=== PATIENT | male | born 1950 | race Caucasian/White ===

== ENCOUNTER 2020-12-17 14:58 | Outpatient (RCR) | payer MEDICARE, SELFPAY ==
[2020-12-17] MEDS: COVID-19 VACC, MRNA(PFIZER)/PF 30 MCG/0.3 ML SYRINGE IM (08:29)
[2021-01-07] MEDS: COVID-19 VACC, MRNA(PFIZER)/PF 30 MCG/0.3 ML SYRINGE IM (07:58)
== END 2020-12-17 23:59 ==
LOC: IMMUN 14:58
PROVIDERS: PCP Family Medicine; Visit Provider Family Medicine
DX: Z23 Encounter for immunization (principal)
CPT/HCPCS: 0001A; 0002A

== ENCOUNTER 2021-01-30 20:28 | Inpatient (IN) | payer MEDICARE, BC, SELFPAY ==
[2021-01-30 20:29] VITALS: BP 124/81; PULSE 105; RESP 16; TEMP 36.1; O2SAT 96; BMI 26.6
--- NOTE | 2021-01-30 20:58 | CT_ITS ---
We are attempting to reach an attending provider to discuss findings. An addendum with communication details will be sent when the communication is complete. HISTORY: abdominal pain TECHNIQUE: Helically acquired images were obtained of the abdomen and pelvis following the intravenous administration of 100mL Isovue-370 Iodinated contrast. 2D reformats. No oral contrast was administered. A radiation dose optimization technique was used for this scan. COMPARISON: None FINDINGS: # of images incl. paperwork: [id number] LUNG BASES: Dependent atelectasis. Left lower lobe benign calcified granuloma. Tiny bilateral Bochdalek hernias Severe coronary artery calcific ASCVD. Tiny pericardial effusion.. CT abdomen: Degenerative disc disease. Facet arthropathy. Enthesopathy. Some hip arthritis. The gallbladder contains several gallstones. Liver, spleen, pancreas, and adrenal glands, are normal. The kidneys are normal. The aorta is disease with atherosclerosis. Below the level of the renal arteries there are 2 times at the infrarenal abdominal aorta is aneurysmally dilated. The more cranial of these 2 episodes is dilated to 2.7 cm. The more inferior time, just above the aortic bifurcation, and the infrarenal abdominal aortic diameter is 3 x 3.4 cm consistent with an infrarenal abdominal aortic aneurysm.. CT pelvis: No ascites is present. The appendix is normal. Series 2 image 82. The prostate gland is not enlarged. A small left inguinal hernia contains only fat. The bladder is normal. Diverticulosis within the decompressed colon. Distended loops of small bowel with many air-fluid levels. Decompressed distal small bowel loops. The transition point is perhaps best demonstrated on the coronal series, coronal series 601 image 40 within the midline just above the urinary bladder. There is a periumbilical anterior abdominal wall hernia that contains only a small amount of fat and does not appear to be involved with a small bowel obstruction. CT/Abdomen/Pelvis W IV Cont ONLY IMPRESSION: Distal small bowel obstruction possibly due to an internal hernia. 3 x 3.4 cm infrarenal abdominal aortic aneurysm with atherosclerosis within the abdominal aorta. Tiny periumbilical hernia. Tiny left inguinal hernia. Cholelithiasis. Individualized dose optimization techniques were used for this CT. at 2315 Reported and signed by: Kal John MD Electronically Signed: Kal John MD at 23:14 EDT Tel , Service support ,
--- NOTE | 2021-01-30 21:00 | ED.DCSUM_ITS ---
History of Present Illness Chief Complaint: Abd Pain Narrative: Patient presents with epigastric and left-sided abdominal pain for 2 days he was seen at an urgent care and was told he has a GI bug, his pain did not improve. He has no diarrhea. He has no urinary symptoms. He has no radiation of the pain pain to his back he has no flank pain he has no tearing sensation. He has no chest pain or shortness of breath. Pain is aching and constant he has some nausea but no vomiting. Past medical history: BPH Medications: Reviewed Social history: Noncontributory Review of systems: All systems negative except as indicated General: No fever Eyes: No visual changes ENT: No upper airway congestion, normal voice Neck: No neck pain Cardiovascular: No chest pain Respiratory: No shortness of breath or cough Gastrointestinal: Epigastric pain and left upper quadrant pain as in HPI Genitourinary: No dysuria Musculoskeletal: Denies myalgias no difficulty with ambulation Skin: No rash Neurological: No memory loss, confusion or any focal weakness Psych: No recent behavioral changes Hematologic: No easy bleeding or easy bruising Physical exam General: Well nourished, Well developed, No Acute Distress Head: Normocephalic, Atraumatic Eyes: Conjunctiva not pale ENT: Moist mucous membranes Neck: Supple, Nontender, No lymphadenopathy Cardiovascular: Regular rate, Regular rhythm Respiratory: No distress, CTA bilaterally Abdomen: Soft, there is epigastric pain without any guarding or rebound there is some left upper quadrant pain. No lower abdominal pain. Back: Nontender, Normal Inspection. Negative for: CVA tenderness Extremities: Nontender, No edema Skin: Normal color, No rash Neurological: Alert, Normal Strength, Normal Sensation Psychological: Normal affect Past Medical History - Allergies and Home Meds Allergies/Adverse Reactions: Allergies No Known Allergies Allergy (Verified 01/30/21 20:31) Primary Care Physician: Abdoul Valdez MD [Primary Care Provider] - Smoking Status: Former smoker Physical Exam Vital Signs/Narrative: Vital Signs Temp Pulse Resp BP Pulse Ox 01/30/21 20:29 97 F L 105 H 16 124/81 H 96 Diagnostic/Tx/Re-eval - Medical Decision Making Patient will be giving analgesia, I will draw blood work to check for pancreati tis I will do a CT. Patient will be turned over to the oncoming ED physician. ED Disposition - Plan for ED Patient: Diagnosis: Abdominal pain Referrals: Abdoul Valdez MD [Primary Care Provider] -
[2021-01-30 21:14] LABS: Bacteria 0 SEEN /hpf (None Seen); Red Blood Cells-Urine 0 SEEN /hpf (0-5); White Blood Cells 0 SEEN /hpf (0-5)
[2021-01-30 21:16] LABS: Absolute Lymphocyte Count 0.63 X10^3/uL (0.83-4.51); Absolute Neutrophil Count 4.1 X10^3/uL (2.0-7.7); Basophil# 0.02 X10^3/uL; Basophil% 0.3 % (0-1); Eosinophil# 0.02 X10^3/uL; Eosinophils% 0.3 % (0-5); Hematocrit 47.6 % (40-54); Hemoglobin 15.6 g/dL (13.0-16.5); Lymphocyte # 0.63 X10^3/ul (0.83-4.51); Lymphocyte % 10.4 % (19-41); Mean Corp Hgb Conc 32.8 g/dL (32-36); Mean Corpuscular Hgb 27.4 pg (27.0-32.0); Mean Corpuscular Volume 83.5 fL (80-94); Mean Platelet Vol. 8.8 fl (6.2-12.0); Monocyte# 1.29 X10^3/uL; Monocyte% 21.4 % (0-10); NRBC Flagged by Analyzer 0 % (0-5); Neutrophil # 4.05 X10^3/uL (2.7-7.7); Neutrophil % 67.1 % (47-70); Platelet Count 160 K/mm3 (150-450); RBC Distribution Width CV 13.1 % (11.6-14.6); RBC Distribution Width SD 39.8 fl (35.1-43.9)
[2021-01-30 21:17] LABS: Color, Urine Yellow (Yellow); Glucose, Dipstick Normal (Normal); Ketone-Dipstick Negative (Negative); Leukocyte Esterase-Dipstick Negative /ul (Negative); Nitrite-Dipstick Negative (Negative); Occult Blood-Urine Negative /ul (Negative); Protein-Dipstick 15 mg/dl (Negative); Urine Bilirubin Dipstick Negative (Negative); Urine Clarity Clear (Clear); Urine Urobilinogen Normal (Normal)
[2021-01-30 21:25] LABS: Mucous, Urine 1+ /hpf (<or=2+); Squamous Epithelial Cells - UA 0-5 SEEN /hpf (0-5)
[2021-01-30] MEDS: 0.9% Normal Saline 1,000 ML 1000 ML IV (21:26)
[2021-01-30] MEDS: Ondansetron 4 MG/2 ML Vial IV ×2 (21:27→23:46)
[2021-01-30] MEDS: Morphine 2 MG/ML Syringe IV (21:27)
[2021-01-30 21:32] LABS: AST(SGOT) 12 U/L (15-37); Alanine Aminotransfer ALT/SGPT 20 U/L (16-61); Albumin, Serum 3.6 g/dL (3.2-5.0); Alkaline Phosphatase 79 U/L (45-117); Anion Gap 5 (5-15); BUN 13 mg/dL (7-18); BUN/Creat Ratio 10.2 RATIO (10-20); Calcium,Total 8.9 mg/dL (8.5-10.1); Chloride 103 mmol/L (98-107); Creatinine, Serum 1.28 mg/dL (0.70-1.30); EST Glomerular Filtration Rate 59 mL/min (>60); Est Glom Filt Rate - Afr Amer 71 mL/min (>60); Estimated Creatinine Clearance 52.93 ml/min; Globulin 3.6 g/dL (2.2-4.2); Glucose 121 mg/dL (74-106); Lipase 69 U/L (73-393); Potassium 4.1 mmol/L (3.5-5.1); Protein, Total 7.2 g/dL (6.4-8.2); Sodium Level 136 mmol/L (136-145)
--- NOTE | 2021-01-30 21:47 | ED.DEP ---
ED Disposition - Plan for ED Patient: Diagnosis: Abdominal pain Instructions: ED Pain, Acute, Uncertain Cause Prescriptions: Omeprazole 40 mg PO DAILY #30 capsule.dr Transmission Status: Pending to [facility] Referrals: Abdoul Valdez MD [Primary Care Provider] - 2 Days
[2021-01-30 22:21] VITALS: BP 140/80; PULSE 76; RESP 16; TEMP 36.9; O2SAT 97
[2021-01-30] MEDS: Morphine 4 MG/ML Syringe IV (22:56)
[2021-01-30 22:57] VITALS: BP 136/84; PULSE 82; RESP 19; O2SAT 96
[2021-01-30 23:13] VITALS: BP 138/78; PULSE 74; RESP 18; TEMP 36.7; O2SAT 92
[2021-01-30 23:48] VITALS: BP 136/83; PULSE 88; RESP 17; TEMP 37.1; O2SAT 98
[2021-01-30 23:50] VITALS: BP 136/83; PULSE 84; PULSE 88; RESP 16; TEMP 36.9; O2SAT 97; O2SAT 98
[2021-01-31 00:46] VITALS: BP 132/77; PULSE 89; RESP 17; TEMP 36.9; O2SAT 93
[2021-01-31 02:14] VITALS: BP 134/77; BP 136/90; PULSE 84; RESP 16; RESP 17; TEMP 37.1; O2SAT 94; O2SAT 96
[2021-01-31 03:17] VITALS: BMI 25.4; BMI 25.5
[2021-01-31 03:51] VITALS: BP 124/64; PULSE 80; RESP 16; TEMP 37.4; O2SAT 95
[2021-01-31] MEDS: 0.9% Normal Saline 1,000 ML 75 ML IV ×3 (04:40→20:39)
[2021-01-31 06:38] LABS: Hematocrit 42.8 % (40-54); Hemoglobin 14.2 g/dL (13.0-16.5); Mean Corp Hgb Conc 33.2 g/dL (32-36); Mean Corpuscular Hgb 28.1 pg (27.0-32.0); Mean Corpuscular Volume 84.8 fL (80-94); Mean Platelet Vol. 8.6 fl (6.2-12.0); Platelet Count 155 K/mm3 (150-450); RBC Distribution Width CV 13.1 % (11.6-14.6); RBC Distribution Width SD 40.3 fl (35.1-43.9); Red Blood Count 5.05 M/mm3 (4.6-6.2); White Blood Count 5.3 K/mm3 (4.4-11.0)
[2021-01-31 06:49] LABS: Anion Gap 5 (5-15); BUN 13 mg/dL (7-18); BUN/Creat Ratio 12.9 RATIO (10-20); Calcium,Total 8.1 mg/dL (8.5-10.1); Chloride 105 mmol/L (98-107); Creatinine, Serum 1.01 mg/dL (0.70-1.30); EST Glomerular Filtration Rate 77 mL/min (>60); Est Glom Filt Rate - Afr Amer 94 mL/min (>60); Estimated Creatinine Clearance 67.08 ml/min; Glucose 104 mg/dL (74-106); Potassium 3.9 mmol/L (3.5-5.1); Sodium Level 136 mmol/L (136-145)
[2021-01-31 07:42] VITALS: BP 111/65; PULSE 81; RESP 14; TEMP 36.9; O2SAT 94
--- NOTE | 2021-01-31 10:11 | PCM.HP.STD ---
Problem List (1) Abdominal pain Status: Acute Qualifiers: Abdominal location: left upper quadrant Qualified Code(s): R10.12 - Left upper quadrant pain History of Present Illness Date of Admission: 01/31/21 The patient is a 70 year old M Patient presents with epigastric and left-sided abdominal pain for 2 days he was seen at an urgent care and was told he has a GI bug, his pain did not improve. He has no diarrhea. He has no urinary symptoms. He has no radiation of the pain pain to his back he has no flank pain he has no tearing sensation. He has no chest pain or shortness of breath. Pain is aching and constant he has some nausea but no vomiting. The patient has had 2 CT scans 1 with IV contrast only on the other with oral contrast only. Findings: IMPRESSION: Cholelithiasis. Small bowel wall thickening within the mid jejunum with mesenteric fat stranding may represent small bowel ischemia. There is an infrarenal abdominal aortic aneurysm measures 3.1 cm in greatest diameter. IMPRESSION: Distal small bowel obstruction possibly due to an internal hernia. 3 x 3.4 cm infrarenal abdominal aortic aneurysm with atherosclerosis within the abdominal aorta. Tiny periumbilical hernia. Tiny left inguinal hernia. Cholelithiasis. Individualized dose optimization techniques were used for this CT. Since being on the floor his pain has improved. He still has his Molina catheter in. He is not having any further nausea. He still experiencing some slight abdominal discomfort. Past Medical History Allergies No Known Allergies Allergy (Verified 01/30/21 20:31) Home Medications: Ambulatory Orders Medication Instructions Recorded Alfuzosin HCl [Alfuzosin HCl ER] 10 mg PO DAILY 01/30/21 Cyclobenzaprine HCl 1 tablet PO DAILY 01/30/21 Ferrous Sulfate [Iron] 325 mg PO QODAY 01/30/21 Finasteride 1 tablet PO DAILY 01/30/21 Surgical History: no surgical history Smoking Status: Former smoker Tobacco Use: Cigarettes - *Family History Maternal History Items: No pertinent history Review of Systems Constitutional: Denies: Chills, Fever, Weight Change Cardiovascular: Denies: Chest Pain, Chest Pressure, Chest Tightness, Palpitations Respiratory: Denies: Cough, Hemoptysis, Shortness of breath at rest, Shortness of breath upon exertion, Wheezing Gastrointestinal: Reports: Abdominal Pain, Nausea VTE Information - Inpt Only VTE Present on Admission: No VTE Mechan Device Prophylaxis: SCD's VTE Pharm Prophylaxis ordered?: No Reason prophylaxis not ordered:: Treatment Not Indicated Patient Problems: Active and Suspected Problems Abdominal pain (Acute) - Physical Exam Vitals/I&O's: Vital Signs Temp Pulse Resp BP Pulse Ox 98.5 F 81 14 111/65 94 01/31/21 07:42 01/31/21 07:42 01/31/21 07:42 01/31/21 07:42 01/31/21 07:42 Oxygen Flow Rate (L/min) 2 Oxygen Delivery Method Room Air Weight: 172 lb 6.424 oz Body Mass Index (BMI) 25.4 Intake and Output for Last 24 Hours 01/29/21 01/30/21 01/31/21 23:59 23:59 23:59 Intake Total 1000 / 1000 338.75 / 338.75 Output Total 150 / 150 Balance 1000 / 1000 188.75 / 188.75 General: Alert, Oriented x3 Lungs: Clear to auscultation Cardiovascular: Regular rate, Regular Rhythm, No murmurs Abdomen: Soft - No rebound guarding or peritoneal signs are identified. He is slightly distended. Laboratory Results 01/30/21 21:05: Urine Color Yellow, Urine Clarity Clear, Urine pH 6.0, Ur Specific [place] 1.020, Urine Protein 15 H, Urine Glucose (UA) Normal, Urine Ketones Negative, Urine Occult Blood Negative, Urine Nitrite Negative, Urine Bilirubin Negative, Urine Urobilinogen Normal, Ur Leukocyte Esterase Negative, Urine RBC 0 SEEN, Urine WBC 0 SEEN, Ur Squamous Epith Cells 0-5 SEEN, Urine Bacteria 0 SEEN, Urine Mucus 1+ 01/30/21 21:07: WBC 6.0, RBC 5.70, Hgb 15.6, Hct 47.6, MCV 83.5, MCH 27.4, MCHC 32.8, RDW Std Deviation 39.8, RDW Coeff of Douglas 13.1, Plt Count 160, MPV 8.8, Immature Gran % (Auto) 0.500, Neut % (Auto) 67.1, Lymph % (Auto) 10.4 L, [place] % (Auto) 21.4 H, Eos % (Auto) 0.3, Baso % (Auto) 0.3, Absolute Neuts (auto) 4.1, Absolute Lymphs (auto) 0.63 L, Nucleated RBC % 0 01/30/21 21:07: Sodium 136, Potassium 4.1, Chloride 103, Carbon Dioxide 28.0, Anion Gap 5, BUN 13, Creatinine 1.28, Estim Creat Clear Calc 52.93, Est GFR (MDRD) Af Amer 71, Est GFR (MDRD) Non-Af 59 L, BUN/Creatinine Ratio 10.2, Glucose 121 H, Calcium 8.9, Total Bilirubin 0.80, AST 12 L, ALT 20, Alkaline Phosphatase 79, Total Protein 7.2, Albumin 3.6, Globulin 3.6, Albumin/Globulin Ratio 1.0, Lipase 69 L 01/31/21 02:57: Lactic Acid 1.0 01/31/21 06:28: WBC 5.3, RBC 5.05, Hgb 14.2, Hct 42.8, MCV 84.8, MCH 28.1, MCHC 33.2, RDW Std Deviation 40.3, RDW Coeff of Douglas 13.1, Plt Count 155, MPV 8.6 01/31/21 06:28: Sodium 136, Potassium 3.9, Chloride 105, Carbon Dioxide 26.0, Anion Gap 5, BUN 13, Creatinine 1.01, Estim Creat Clear Calc 67.08, Est GFR (MDRD) Af Amer 94, Est GFR (MDRD) Non-Af 77, BUN/Creatinine Ratio 12.9, Glucose 104, Calcium 8.1 L Current Medications Hydromorphone HCl (Hydromorphone 0.5 Mg/0.5 Ml Syringe) 0.5 - 1 mg IV Q3H PRN PRN PRN Reason: PAIN 1-10/10 Hydromorphone HCl (Hydromorphone 1 Mg/Ml Syringe) 0.5 - 1 mg IV Q3H PRN PRN PRN Reason: PAIN 1-10/10 Sodium Chloride () 1,000 mls @ 75 mls/hr IV .[id number] [facility] Last Admin: 01/31/21 09:11 Dose: 75 mls/hr Documented by: Ondansetron HCl (Ondansetron 4 Mg/2 Ml Vial) 4 mg IV Q6H PRN PRN PRN Reason: nausea Sodium Chloride (0.9% Saline Lock 10 Ml Syringe) 10 - 40 ml IV UD PRN PRN Reason: SALINE FLUSH Assessment/Plan All Active Problems Abdominal pain (Acute) I think the best thing to do here is just to continue to hydrate him get him back on his prostate medications to hopefully will be able to get rid of his Molina catheter. Since he is improving anticipate that hopefully this will continue I am not going to start him on any antibiotics I will start him on some clear liquids to see how he does with that. At some point he is going to have to have a GI consultation with a capsule endoscopy to evaluate the small intestine that looked abnormal. At the present time it does not appear that he has anything that I need to operate on emergently.
[2021-01-31] MEDS: Finasteride 5 MG Tablet PO (11:26)
[2021-01-31] MEDS: cycloBENZAPRine HCl 5 MG TABLET PO (11:27)
[2021-01-31 14:00] VITALS: BP 122/70; PULSE 72; RESP 16; TEMP 37; O2SAT 97
[2021-01-31] MEDS: HYDROmorphone 0.5 MG/0.5 ML SYRINGE IV ×2 (15:15→21:28)
[2021-01-31] MEDS: 0.9% Saline Lock 10 ML Syringe IV ×2 (15:16→15:24)
[2021-01-31] MEDS: Ondansetron 4 MG/2 ML Vial IV ×2 (15:25→21:28)
[2021-01-31] MEDS: Tamsulosin HCl 0.4 MG Capsule PO (17:15)
[2021-01-31 20:36] VITALS: BP 139/84; PULSE 72; RESP 16; TEMP 37.1; O2SAT 98
--- NOTE | 2021-01-31 23:34 | CT_ITS ---
STUDY: CT ABDOMEN AND PELVIS WITHOUT CONTRAST REASON FOR EXAM: Male, 70 years old. SBO RADIATION DOSAGE (If Supplied By Facility): CTDIvol = ( 8.49 ) mGy, DLP = ( 437.18 ) mGycm TECHNIQUE: Transaxial images were obtained from the dome of the diaphragm to the symphysis pubis without oral contrast, and without intravenous contrast. Sagittal and coronal images were reconstructed. Individualized dose optimization techniques were used for this CT. COMPARISON: None. FINDINGS: The visualized lung bases are unremarkable. The visualized portions of the heart are within normal limits. Normal liver. There are multiple gallstones. Normal spleen. Normal pancreas. Normal bilateral adrenal glands. Bilateral renal cysts are noted the largest measures 3.0 cm is in the right kidney. Normal visualized stomach. Small bowel wall thickening within the mid jejunum with mesenteric fat stranding may represent small bowel ischemia. Normal colon. The appendix is visualized and appears normal. There is an infrarenal abdominal aortic aneurysm measures 3.1 cm in greatest diameter. Normal inferior vena cava. Normal retroperitoneum. Normal urinary bladder. Normal abdominal wall. Normal osseous structures. CT/Abdomen/Pel W ORAL Cont Only IMPRESSION: Cholelithiasis. Small bowel wall thickening within the mid jejunum with mesenteric fat stranding may represent small bowel ischemia. There is an infrarenal abdominal aortic aneurysm measures 3.1 cm in greatest diameter. Electronically Signed: Crystal Peter MD at 2:44 EDT Tel , Service support ,
[2021-02-01 02:10] VITALS: BP 115/72; PULSE 70; RESP 16; TEMP 36.7; O2SAT 94
--- NOTE | 2021-02-01 07:02 | PCM.PN.SRG ---
Patient Problems: Active and Suspected Problems Abdominal pain (Acute) Subjective: No real change in his abdominal exam today. Still feels occasional discomfort has not had any bowel movements states that he is passing slight amount of flatus. Objective: Abdomen is soft he has no rebound guarding or peritoneal signs identified. - Physical Exam Vitals/I&O's: Vital Signs Temp Pulse Resp BP Pulse Ox 98.1 F 70 16 115/72 94 02/01/21 02:10 02/01/21 02:10 02/01/21 02:10 02/01/21 02:10 02/01/21 02:10 Oxygen Flow Rate (L/min) 2 Oxygen Delivery Method Room Air Weight: 172 lb 6.424 oz Body Mass Index (BMI) 25.4 Intake and Output for Last 24 Hours 01/30/21 01/31/21 02/01/21 23:59 23:59 23:59 Intake Total 1000 / 1000 2398.75 / 2598.75 200 / 200 Output Total 1875 / 2425 1050 / 1050 Balance 1000 / 1000 523.75 / 173.75 -850 / -850 Current Medications Cyclobenzaprine HCl (Cyclobenzaprine Hcl 5 Mg Tablet) 5 mg PO DAILY [facility] Last Admin: 01/31/21 11:27 Dose: 5 mg Documented by: Finasteride (Finasteride 5 Mg Tablet) 5 mg PO DAILY [facility] Last Admin: 01/31/21 11:26 Dose: 5 mg Documented by: Hydromorphone HCl (Hydromorphone 0.5 Mg/0.5 Ml Syringe) 0.5 - 1 mg IV Q3H PRN PRN PRN Reason: PAIN 1-1010 Last Admin: 01/31/21 21:28 Dose: 0.5 mg Documented by: Hydromorphone HCl (Hydromorphone 1 Mg/Ml Syringe) 0.5 - 1 mg IV Q3H PRN PRN PRN Reason: PAIN 1-10/10 Sodium Chloride () 1,000 mls @ 75 mls/hr IV .[id number] [facility] Last Admin: 01/31/21 20:39 Dose: 75 mls/hr Documented by: Ondansetron HCl (Ondansetron 4 Mg/2 Ml Vial) 4 mg IV Q6H PRN PRN PRN Reason: nausea Last Admin: 01/31/21 21:28 Dose: 4 mg Documented by: Sodium Chloride (0.9% Saline Lock 10 Ml Syringe) 10 - 40 ml IV UD PRN PRN Reason: SALINE FLUSH Last Admin: 01/31/21 15:24 Dose: 10 ml Documented by: Tamsulosin HCl (Tamsulosin Hcl 0.4 Mg Capsule) 0.4 mg PO DAILY@1730 YANET Last Admin: 01/31/21 17:15 Dose: 0.4 mg Documented by: Medical Necessity - Tobacco Use Smoking Status: Former smoker Tobacco Use: Cigarettes Assessment/Plan All Active Problems Abdominal pain (Acute) Labs are still pending this morning. Awaiting GI function. Unlikely I will be able to discharge him today.
[2021-02-01 08:00] VITALS: BP 125/78; PULSE 80; RESP 18; TEMP 36.8; O2SAT 98
[2021-02-01 10:03] LABS: Absolute Lymphocyte Count 0.91 X10^3/uL (0.83-4.51); Absolute Neutrophil Count 2.7 X10^3/uL (2.0-7.7); Basophil# 0.03 X10^3/uL; Basophil% 0.6 % (0-1); Eosinophil# 0.17 X10^3/uL; Eosinophils% 3.5 % (0-5); Hematocrit 42.5 % (40-54); Hemoglobin 13.6 g/dL (13.0-16.5); Lymphocyte # 0.91 X10^3/ul (0.83-4.51); Lymphocyte % 18.5 % (19-41); Mean Corpuscular Hgb 27.4 pg (27.0-32.0); Mean Corpuscular Volume 85.5 fL (80-94); Mean Platelet Vol. 8.4 fl (6.2-12.0); Monocyte# 0.92 X10^3/uL; Monocyte% 18.7 % (0-10); NRBC Flagged by Analyzer 0 % (0-5); Neutrophil # 2.68 X10^3/uL (2.7-7.7); Neutrophil % 54.6 % (47-70); Platelet Count 150 K/mm3 (150-450); RBC Distribution Width CV 13.1 % (11.6-14.6); RBC Distribution Width SD 40.6 fl (35.1-43.9); Red Blood Count 4.97 M/mm3 (4.6-6.2); White Blood Count 4.9 K/mm3 (4.4-11.0)
--- NOTE | 2021-02-01 10:10 | CASEMGMT ---
RN ENRIQUE Face to Face with patient for initial transition planning/care coordination assessment. RN CM introduced self and role at [facility]. Patient lying in bed, alert and oriented. Patient willing to participate in assessment and is able to answer all questions appropriately. Care providers, pharmacy, and demographics verified. Patient wishes to discharge home, denies need for home health at this time. Patient states he has no further needs or concerns at this time. CM to follow for discharge planning needs that may arise. PCP: José Miguel Specialists: none Preferred Pharmacy: [facility] Insurance: Gabe ACOSTA Prescription Benefit: yes Living Will/HPOA: yes, Elisabeth Neville LNOK: Living Arrangements: Patient lives with in a single story home with no steps to enter. Patient states he is independent at home. Transportation: self/ DME/HHC: patient denies DME or previous HHC. Disposition Plan: Patient to discharge home with family support and follow-up plans in place. Isaura NIELSEN, RN, CM
[2021-02-01] MEDS: cycloBENZAPRine HCl 5 MG TABLET PO (10:21)
[2021-02-01] MEDS: Finasteride 5 MG Tablet PO (10:21)
[2021-02-01] MEDS: 0.9% Normal Saline 1,000 ML 75 ML IV ×2 (10:22→23:54)
[2021-02-01 10:32] LABS: ALB/GLOB Ratio 0.9 RATIO (0.9-2.4); AST(SGOT) 9 U/L (15-37); Alanine Aminotransfer ALT/SGPT 15 U/L (16-61); Albumin, Serum 2.9 g/dL (3.2-5.0); Alkaline Phosphatase 68 U/L (45-117); Anion Gap 4 (5-15); BUN 11 mg/dL (7-18); Calcium,Total 8.4 mg/dL (8.5-10.1); Chloride 106 mmol/L (98-107); EST Glomerular Filtration Rate 70 mL/min (>60); Est Glom Filt Rate - Afr Amer 85 mL/min (>60); Estimated Creatinine Clearance 61.59 ml/min; Globulin 3.3 g/dL (2.2-4.2); Glucose 110 mg/dL (74-106); Potassium 3.9 mmol/L (3.5-5.1); Protein, Total 6.2 g/dL (6.4-8.2); Sodium Level 138 mmol/L (136-145)
[2021-02-01 14:17] VITALS: BP 119/71; PULSE 67; RESP 18; TEMP 36.5; O2SAT 97
--- NOTE | 2021-02-01 15:20 | NURSING ---
This nurse spoke with FRANCIS Matute, Dr. Valles will see pt as outpatient but request that pt has an outpatient abdominal ultrasound done before appointment.
--- NOTE | 2021-02-01 15:23 | CHAPLAIN ---
Type of Pastoral Visit _x__ Initial Visit ___ Follow-up Visit ___ On-call Visit ___ General Patient Visit ___ Spiritual Assessment ___ Family Conference ___ Bereavement ___ Rapid Response ___ Code Blue ___ Other (describe below) Pastoral Care Referral From _x__ Patient ___ Family ___ Nurse ___ Physician ___ [employer] Spray Unit Adjuster ___ Cloth Printer Helper ___ Other (describe below) Sacrament/Intervention _x__ Active listening ___ Anointing ___ Jehovah'S Witness ___ Bereavement ___ Communion ___ Kim exploration ___ ___ Life review _x__ Prayer ___ Reconciliation ___ Sacrament of Sick ___ Supportive presence ___ Wedding ___ Other (describe below) Pastoral Comments patient and spouse together in room; pt states they keep finding more things that are wrong; spouse more talkative and more welcoming of prayer and presence at this time; pt is fairly quiet and not as willing to talk;
--- NOTE | 2021-02-01 16:01 | PCM.PN.BLA ---
Progress Note Incidental 3.1 cm abdominal aortic aneurysm found on CT scan of the abdomen pelvis. I was contacted by Dr. Deleon this morning for possible vascular outpatient consult. Patient will need formal abdominal ultrasound to further evaluate this patient's AAA. He will need to have a scheduled outpatient consult within 2 weeks of discharge with Dr. Valles for evaluation and treatment planning moving forward. Patient was briefly discussed with Dr. Valles. He is fine to follow as an outpatient. STROKE Vital Signs/Narrative: Vital Signs Temp Pulse Resp BP Pulse Ox 02/01/21 14:17 97.7 F L 67 18 119/71 97
[2021-02-01] MEDS: Tamsulosin HCl 0.4 MG Capsule PO (17:13)
[2021-02-01 20:33] VITALS: BP 110/73; PULSE 64; RESP 16; TEMP 36.7; O2SAT 96
[2021-02-02 02:29] VITALS: BP 118/73; PULSE 66; RESP 18; TEMP 36.9; O2SAT 94
[2021-02-02] MEDS: Tamsulosin HCl 0.4 MG Capsule PO (07:46)
[2021-02-02] MEDS: Finasteride 5 MG Tablet PO (07:46)
[2021-02-02] MEDS: cycloBENZAPRine HCl 5 MG TABLET PO (07:46)
--- NOTE | 2021-02-02 07:47 | PCM.PN.SRG ---
Patient Problems: Active and Suspected Problems Abdominal pain (Acute) Subjective: Patient still complaining of some minimal abdominal pain. No nausea or vomiting had a bowel movement yesterday. Objective: Abdomen is soft no rebound guarding or peritoneal signs are identified. - Physical Exam Vitals/I&O's: Vital Signs Temp Pulse Resp BP Pulse Ox 98.4 F 66 18 118/73 94 02/02/21 02:29 02/02/21 02:29 02/02/21 02:29 02/02/21 02:29 02/02/21 02:29 Oxygen Flow Rate (L/min) 2 Oxygen Delivery Method Room Air Weight: 172 lb 6.424 oz Body Mass Index (BMI) 25.4 Intake and Output for Last 24 Hours 01/31/21 02/01/21 02/02/21 23:59 23:59 23:59 Intake Total 2398.75 / 2598.75 4200 / 4200 Output Total 1875 / 2425 3400 / 4500 1525 / 1525 Balance 523.75 / 173.75 800 / -300 -1525 / -1525 Laboratory Results 02/01/21 09:54: WBC 4.9, RBC 4.97, Hgb 13.6, Hct 42.5, MCV 85.5, MCH 27.4, MCHC 32.0, RDW Std Deviation 40.6, RDW Coeff of Douglas 13.1, Plt Count 150, MPV 8.4, Immature Gran % (Auto) 4.100 H, Neut % (Auto) 54.6, Lymph % (Auto) 18.5 L, [place] % (Auto) 18.7 H, Eos % (Auto) 3.5, Baso % (Auto) 0.6, Absolute Neuts (auto) 2.7, Absolute Lymphs (auto) 0.91, Nucleated RBC % 0 02/01/21 09:54: Sodium 138, Potassium 3.9, Chloride 106, Carbon Dioxide 28.0, Anion Gap 4 L, BUN 11, Creatinine 1.10, Estim Creat Clear Calc 61.59, Est GFR (MDRD) Af Amer 85, Est GFR (MDRD) Non-Af 70, BUN/Creatinine Ratio 10.0, Glucose 110 H, Calcium 8.4 L, Total Bilirubin 0.60, AST 9 L, ALT 15 L, Alkaline Phosphatase 68, Total Protein 6.2 L, Albumin 2.9 L, Globulin 3.3, Albumin/Globulin Ratio 0.9 Current Medications Cyclobenzaprine HCl (Cyclobenzaprine Hcl 5 Mg Tablet) 5 mg PO DAILY [facility] Last Admin: 02/02/21 07:46 Dose: 5 mg Documented by: Finasteride (Finasteride 5 Mg Tablet) 5 mg PO DAILY [facility] Last Admin: 02/02/21 07:46 Dose: 5 mg Documented by: Hydromorphone HCl (Hydromorphone 0.5 Mg/0.5 Ml Syringe) 0.5 - 1 mg IV Q3H PRN PRN PRN Reason: PAIN 1-1010 Last Admin: 01/31/21 21:28 Dose: 0.5 mg Documented by: Hydromorphone HCl (Hydromorphone 1 Mg/Ml Syringe) 0.5 - 1 mg IV Q3H PRN PRN PRN Reason: PAIN 1-10/10 Sodium Chloride () 1,000 mls @ 75 mls/hr IV .[id number] [facility] Last Admin: 02/01/21 23:54 Dose: 75 mls/hr Documented by: Ondansetron HCl (Ondansetron 4 Mg/2 Ml Vial) 4 mg IV Q6H PRN PRN PRN Reason: nausea Last Admin: 01/31/21 21:28 Dose: 4 mg Documented by: Sodium Chloride (0.9% Saline Lock 10 Ml Syringe) 10 - 40 ml IV UD PRN PRN Reason: SALINE FLUSH Last Admin: 01/31/21 15:24 Dose: 10 ml Documented by: Tamsulosin HCl (Tamsulosin Hcl 0.4 Mg Capsule) 0.4 mg PO DAILY@1730 [facility] Last Admin: 02/02/21 07:46 Dose: 0.4 mg Documented by: Medical Necessity - Tobacco Use Smoking Status: Former smoker Tobacco Use: Cigarettes Assessment/Plan All Active Problems Abdominal pain (Acute) Going to get him discharged home today. He has been on his prostate medication so I think it is okay to DC the Molina without difficulty. He will need to have a capsule endoscopy and I am going to have to get him referred to gastroenterology up at the main [place] for this.
--- NOTE | 2021-02-02 07:48 | DCINST_ITS ---
Discharge Diet: Light diet - advance as tolerated - If you have questions about your diet instructions, please talk to your doctor. Discharge Activity: May Drive May shower in (days): 1 Lifting Restrictions: 10 pounds Call your doctor if you observe: Fever of 101 or Higher, Inability to urinate Additional Dressing/Incision Instructions:: Change or remove dressing in 4 days. Leave steri-strips in place for 1 week. Instructions: ED Pain, Acute, Uncertain Cause Allergies/Adverse Reactions: Allergies No Known Allergies Allergy (Verified 01/30/21 20:31) Medications to take at Discharge Alfuzosin HCl [Alfuzosin HCl ER] 10 mg PO DAILY 01/30/21 Cyclobenzaprine HCl 1 tablet PO DAILY 01/30/21 Ferrous Sulfate [Iron] 325 mg PO QODAY 01/30/21 Finasteride 1 tablet PO DAILY 01/30/21 Primary Care Physician: Abdoul Valdez MD [Primary Care Provider] - 2 Days Test Results: Test results from this visit will be discussed in further detail at your follow- up appointment, if applicable. Please Follow Up With: Juju Thompson PA-C - [phone] When: Call to make an appointment to be seen in about 10 days.
--- NOTE | 2021-02-02 07:52 | PCM.DC.SUM ---
Discharge Date and Diagnosis - Problem List Patient Problems: Active and Suspected Problems Abdominal pain (Acute) Date of Admission: 01/31/21 - Primary Discharge Diagnosis Acute Problems: Active Problems Abdominal pain (Acute) Hospital Course and Treatment Operations: None Procedures: None Summary of Care Provided: The patient is a 70 year old M Patient presents with epigastric and left-sided abdominal pain for 2 days he was seen at an urgent care and was told he has a GI bug, his pain did not improve. He has no diarrhea. He has no urinary symptoms. He has no radiation of the pain pain to his back he has no flank pain he has no tearing sensation. He has no chest pain or shortness of breath. Pain is aching and constant he has some nausea but no vomiting. The patient has had 2 CT scans 1 with IV contrast only on the other with oral contrast only. His abdominal pain slightly improved but it never really went away. He eventually did have a bowel movement that was nonbloody in nature. Patient Problems: Active and Suspected Problems Abdominal pain (Acute) - Physical Exam Vitals/I&O's: Vital Signs Temp Pulse Resp BP Pulse Ox 98.4 F 66 18 118/73 94 02/02/21 02:29 02/02/21 02:29 02/02/21 02:29 02/02/21 02:29 02/02/21 02:29 Oxygen Flow Rate (L/min) 2 Oxygen Delivery Method Room Air Weight: 172 lb 6.424 oz Body Mass Index (BMI) 25.4 Intake and Output for Last 24 Hours 01/31/21 02/01/21 02/02/21 23:59 23:59 23:59 Intake Total 2398.75 / 2598.75 4200 / 4200 Output Total 1875 / 2425 3400 / 4500 1525 / 1525 Balance 523.75 / 173.75 800 / -300 -1525 / -1525 Laboratory Results 02/01/21 09:54: WBC 4.9, RBC 4.97, Hgb 13.6, Hct 42.5, MCV 85.5, MCH 27.4, MCHC 32.0, RDW Std Deviation 40.6, RDW Coeff of Douglas 13.1, Plt Count 150, MPV 8.4, Immature Gran % (Auto) 4.100 H, Neut % (Auto) 54.6, Lymph % (Auto) 18.5 L, [place] % (Auto) 18.7 H, Eos % (Auto) 3.5, Baso % (Auto) 0.6, Absolute Neuts (auto) 2.7, Absolute Lymphs (auto) 0.91, Nucleated RBC % 0 02/01/21 09:54: Sodium 138, Potassium 3.9, Chloride 106, Carbon Dioxide 28.0, Anion Gap 4 L, BUN 11, Creatinine 1.10, Estim Creat Clear Calc 61.59, Est GFR (MDRD) Af Amer 85, Est GFR (MDRD) Non-Af 70, BUN/Creatinine Ratio 10.0, Glucose 110 H, Calcium 8.4 L, Total Bilirubin 0.60, AST 9 L, ALT 15 L, Alkaline Phosphatase 68, Total Protein 6.2 L, Albumin 2.9 L, Globulin 3.3, Albumin/Globulin Ratio 0.9 Current Medications Cyclobenzaprine HCl (Cyclobenzaprine Hcl 5 Mg Tablet) 5 mg PO DAILY [facility] Last Admin: 02/02/21 07:46 Dose: 5 mg Documented by: Finasteride (Finasteride 5 Mg Tablet) 5 mg PO DAILY [facility] Last Admin: 02/02/21 07:46 Dose: 5 mg Documented by: Hydromorphone HCl (Hydromorphone 0.5 Mg/0.5 Ml Syringe) 0.5 - 1 mg IV Q3H PRN PRN PRN Reason: PAIN 1-07/25 Last Admin: 01/31/21 21:28 Dose: 0.5 mg Documented by: Hydromorphone HCl (Hydromorphone 1 Mg/Ml Syringe) 0.5 - 1 mg IV Q3H PRN PRN PRN Reason: PAIN 1-07/25 Sodium Chloride () 1,000 mls @ 75 mls/hr IV .[id number] [facility] Last Admin: 02/01/21 23:54 Dose: 75 mls/hr Documented by: Ondansetron HCl (Ondansetron 4 Mg/2 Ml Vial) 4 mg IV Q6H PRN PRN PRN Reason: nausea Last Admin: 01/31/21 21:28 Dose: 4 mg Documented by: Sodium Chloride (0.9% Saline Lock 10 Ml Syringe) 10 - 40 ml IV UD PRN PRN Reason: SALINE FLUSH Last Admin: 01/31/21 15:24 Dose: 10 ml Documented by: Tamsulosin HCl (Tamsulosin Hcl 0.4 Mg Capsule) 0.4 mg PO DAILY@1730 YANET Last Admin: 02/02/21 07:46 Dose: 0.4 mg Documented by: Discharge Diet: Light diet - advance as tolerated - If you have questions about your diet instructions, please talk to your doctor. Discharge Activity: May Drive May shower in (days): 1 Call your doctor if you observe: Fever of 101 or Higher, Inability to urinate Additional Dressing/Incision Instructions:: Change or remove dressing in 4 days. Leave steri-strips in place for 1 week. Home Medications: Medications to take at Discharge Alfuzosin HCl [Alfuzosin HCl ER] 10 mg PO DAILY 01/30/21 Cyclobenzaprine HCl 1 tablet PO DAILY 01/30/21 Ferrous Sulfate [Iron] 325 mg PO QODAY 01/30/21 Finasteride 1 tablet PO DAILY 01/30/21 Oxycodone HCl/Acetaminophen [Percocet 5/325] 1 - 2 tablet PO Q4H PRN PRN 5 Days #30 tablet 02/02/21 Following Prescriptions Were Given to Patient: Oxycodone HCl/Acetaminophen [Percocet 5/325] 1 - 2 tablet PO Q4H PRN PRN 5 Days #30 tablet PRN Reason: Pain Transmission Status: Sent to [facility] Primary Care Physician: Abdoul Valdez MD [Primary Care Provider] - 2 Days Please Follow Up With: Juju Thompson, FRANCIS-C - [phone] When: Call to make an appointment to be seen in about 10 days. Patient Instructions: ED Pain, Acute, Uncertain Cause Medical Necessity - Tobacco Use Smoking Status: Former smoker Tobacco Use: Cigarettes Meaningful Use Info Meaningful Use Diagnoses (Choose all that apply): None applicable
[2021-02-02 07:55] VITALS: BP 127/68; PULSE 63; RESP 18; TEMP 36.6; O2SAT 94
[2021-02-02] MEDS: Ketorolac 15 MG/ML Vial IV (08:56)
--- NOTE | 2021-02-02 12:05 | PHA.DC.MR ---
Pharmacy Service has performed discharge medication reconciliation for this patient. The patient's discharge medication list was reviewed for discrepancies and discrepancies were resolved. Home Medications Alfuzosin HCl [Alfuzosin HCl ER] 10 mg PO DAILY 01/30/21 Cyclobenzaprine HCl 1 tablet PO DAILY 01/30/21 Ferrous Sulfate [Iron] 325 mg PO QODAY 01/30/21 Finasteride 1 tablet PO DAILY 01/30/21 Oxycodone HCl/Acetaminophen [Percocet 5/325] 1 - 2 tablet PO Q4H PRN PRN 5 Days #30 tablet 02/02/21
== END 2021-02-02 11:40 | disposition home or self-care (01) | DRG 392 ==
LOC: ED 21:23 → MS3 01-31 05:42
PROVIDERS: Emergency Medicine; Admitting Provider Surgery; Emergency Provider Emergency Medicine; PCP Family Medicine; Visit Provider Surgery
DX: R10.12 Left upper quadrant pain (principal); N40.0 Benign prostatic hyperplasia without lower urinary tract symptoms; Z87.891 Personal history of nicotine dependence; I71.4 Abdominal aortic aneurysm, without rupture
CPT/HCPCS: 36415; 74176; 74177; 80048; 80053; 81001; 83605; 83690; 85025; 85027; 97802; 99284; J7030; Q9967; A4216; J2405

== ENCOUNTER 2023-11-30 01:25 | Day surgery (SDC) | payer MEDICARE, BC, SELFPAY ==
[2023-11-30] VITALS (16 sets, daily range): BP systolic 118–172; BP diastolic 61–95; PULSE 60–76; RESP 14–18; TEMP 36.2–36.7; O2SAT 93–100; BMI 28.7
--- NOTE | 2023-11-30 01:40 | EKG12_ITS ---
Test Reason : CP Blood Pressure : / mmHG Vent. Rate : 066 BPM Atrial Rate : 066 BPM P-R Int : 176 ms QRS Dur : 092 ms QT Int : 364 ms P-R-T Axes : 059 042 071 degrees QTc Int : 381 ms Normal sinus rhythm with sinus arrhythmia Normal ECG Confirmed by Bruce Lyod ([id number]), purchasing expeditor EDDIE BARRERA ([id number]) on 12/01/2023 9:41:04 AM Referred By: LISA Confirmed By:Bruce Loyd
--- NOTE | 2023-11-30 02:11 | CT_ITS ---
EXAM: CT Abdomen And Pelvis W/ Contrast Injection HISTORY: abd pain epigastric pain TECHNIQUE: Routine protocol CT abdomen pelvis. IV Contrast: IV 100mL Isovue-370 . Oral Contrast: without. Sagittal and coronal images were reconstructed. RADIATION DOSAGE (If Supplied By Facility): CTDIvol = ( 15.98 ) mGy, DLP = ( 793.80 ) mGycm Individualized dose optimization techniques were used for this CT. COMPARISON: CT abdomen and pelvis 01/31/2021. LIMITATIONS: None. FINDINGS: LOWER CHEST: Dependent atelectasis in the lung bases. Calcified granuloma in the left lower lobe. Proximal ascending aorta 4 cm transverse diameter not significantly changed. LIVER: Unremarkable. GALLBLADDER/BILE DUCTS: Gallstones in the gallbladder including a stone in the gallbladder neck. Gallbladder wall appears thickened with mild adjacent stranding. PANCREAS: Unremarkable. SPLEEN: Unremarkable. ADRENAL GLANDS: Unremarkable. KIDNEYS / URETERS: Small cyst in each kidney. No hydronephrosis. BOWEL / MESENTERY: Scattered diverticula in the colon. No bowel obstruction. APPENDIX: Identified and normal. No evidence of acute appendicitis. PERITONEUM: No free air. No free fluid. VESSELS: Infrarenal aorta 3.1 cm transverse diameter is not significantly changed. RETROPERITONEUM: Unremarkable. REPRODUCTIVE ORGANS: Unremarkable. BLADDER: Unremarkable. ABDOMINAL WALL: Unremarkable. BONES: No acute abnormality. Degenerative changes in the lumbar spine OTHER: None. CT/Abdomen/Pelvis W IV Cont ONLY IMPRESSION: Cholelithiasis with findings that suggest acute cholecystitis. Ultrasound correlation may be helpful for confirmation as clinically indicated. Colonic diverticulosis without evidence of acute diverticulitis. 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 Ascending thoracic aortic aneurysm 4 cm stable. Electronically Signed: Karen Chu MD at 3:52 EST ,
--- NOTE | 2023-11-30 02:11 | RAD_ITS ---
INDICATION: chest pain EXAMINATION/TECHNIQUE: X-RAY - XR Chest 1 View AP portable. 2:28 AM COMPARISON: None. FINDINGS: LINES/DEVICES: None. LUNGS: No consolidation. No pneumothorax. MEDIASTINUM: Unremarkable. CARDIAC SILHOUETTE: Not enlarged. BONES AND SOFT TISSUES: No acute abnormalities. RAD/Chest 1 View (Portable) IMPRESSION: No evidence of active intrathoracic disease. Electronically Signed: Karen Chu MD at 3:02 EST ,
[2023-11-30 02:30] LABS: Absolute Lymphocyte Count 1.84 X10^3/uL (0.83-4.51); Absolute Neutrophil Count 3.4 X10^3/uL (2.0-7.7); Basophil# 0.04 X10^3/uL; Basophil% 0.7 % (0-1); Eosinophil# 0.14 X10^3/uL; Eosinophils% 2.3 % (0-5); Hematocrit 43.9 % (40-54); Hemoglobin 14.5 g/dL (13.0-16.5); Lymphocyte # 1.84 X10^3/ul (0.83-4.51); Lymphocyte % 29.9 % (19-41); Mean Corpuscular Hgb 27.7 pg (27.0-32.0); Mean Corpuscular Volume 83.9 fL (80-94); Mean Platelet Vol. 8.9 fl (6.2-12.0); Monocyte# 0.67 X10^3/uL; Monocyte% 10.9 % (0-10); NRBC Flagged by Analyzer 0 % (0-5); Neutrophil # 3.44 X10^3/uL (2.7-7.7); Neutrophil % 55.9 % (47-70); Platelet Count 182 K/mm3 (150-450); RBC Distribution Width CV 13.6 % (11.6-14.6); Red Blood Count 5.23 M/mm3 (4.6-6.2); White Blood Count 6.2 K/mm3 (4.4-11.0)
[2023-11-30] MEDS: 0.9% Normal Saline (1000mL) 1,000 ML 999 ML IV (02:31)
[2023-11-30] MEDS: Ondansetron 4 MG/2 ML Vial IV (02:31)
[2023-11-30] MEDS: HYDROmorphone 1 MG/ML Syringe IV (02:32)
[2023-11-30 02:52] LABS: AST(SGOT) 21 U/L (15-37); Alanine Aminotransfer ALT/SGPT 20 U/L (16-61); Albumin, Serum 3.8 g/dL (3.2-5.0); Alkaline Phosphatase 91 U/L (45-117); Anion Gap 5 (5-15); BUN 13 mg/dL (7-18); BUN/Creat Ratio 10.3 RATIO (10-20); Bilirubin, Direct 0.08 mg/dL (0.00-0.30); Calcium,Total 9.1 mg/dL (8.5-10.1); Chloride 108 mmol/L (98-107); Creatinine, Serum 1.26 mg/dL (0.70-1.30); EST Glomerular Filtration Rate 59 mL/min (>60); Est Glom Filt Rate - Afr Amer 72 mL/min (>60); Estimated Creatinine Clearance 56.53 ml/min; Glucose 102 mg/dL (74-106); Lipase 76 U/L (13-75); Potassium 3.6 mmol/L (3.5-5.1); Protein, Total 6.8 g/dL (6.4-8.2); Sodium Level 143 mmol/L (136-145); Troponin-I HS 6 pg/mL (3.0-78.0)
--- NOTE | 2023-11-30 04:18 | US_ITS ---
INDICATION: abdominal pain -- stones in gb on ct EXAMINATION: Ultrasound US Abdomen Limited (quadrant) TECHNIQUE: Desouza scale and color doppler imaging was performed of the right upper quadrant. COMPARISON: CT abdomen and pelvis earlier same day FINDINGS: LIVER: 13.8 cm length. Increased echogenicity. GALLBLADDER Size: Distended. Stones: Multiple stones and sludge. Wall thickness: Thickened. 6 mm. Pericholecystic fluid: None. Sonographic Patel sign: Positive. EXTRAHEPATIC BILE DUCTS: Common bile duct 5 mm not dilated. PANCREAS: Visualized portions unremarkable. RIGHT KIDNEY: No hydronephrosis. ASCITES: None. US/Gallbladder IMPRESSION: Cholelithiasis with findings consistent with acute cholecystitis. Fatty infiltration liver. Electronically Signed: Karen Chu MD at 7:54 EST ,
--- NOTE | 2023-11-30 06:50 | EX.ED.DYSGE1 ---
HPI History of Present Illness Chief Complaint: Chest Pain Informant: patient and spouse/S.O. Narrative Narrative: Patient is a 73-year-old male with past medical history of prostate cancer as well as seasonal allergies. He states that the only medication he takes at this time is Flexeril. He states he ate broccoli cheddar soup for dinner last night and then went to bed feeling normal. He states he woke around 11 PM with pain in the mid upper abdominal region. He states that the pain has been constant and will not resolve and secondary to this he comes in for evaluation. PFSH PFSH Home Medications ferrous sulfate 325 mg (65 mg iron) tablet 325 mg PO QODAY supplement 01/30/21 [History Last Taken Unknown] BMX 180 mL suspension 5 ml PO .FOUR TIME DAILY PRN allergy symptoms #180 mL 11/30/23 [History Last Taken Unknown] cyclobenzaprine 10 mg tablet 10 mg PO QHS 11/30/23 [History Last Taken Unknown] fexofenadine 180 mg tablet 180 mg PO Q24H 11/30/23 [History Last Taken Unknown] fluticasone propionate 50 mcg/actuation nasal spray,suspension (24 Hour Allergy Relief) 2 spray intranasal DAILY PRN allergy symptoms 11/30/23 [History Last Taken Unknown] omega 4-oon-irk-fish oil 1,200 mg (144 mg-216 mg) capsule (Fish Oil) 1 cap PO DAILY 11/30/23 [History Last Taken Unknown] triamcinolone acetonide 0.1 % topical ointment 1 applic topical DAILY PRN PRN itching 11/30/23 [History Last Taken Unknown] zinc sulfate 66 mg tablet (Zinc-15) 66 mg PO DAILY 11/30/23 [History Last Taken Unknown] Allergy/AdvReac Type Severity Reaction Status Date / Time No Known Allergies Allergy Verified 11/30/23 01:26 Social History Smoking Status: Former smoker ROS ROS ED Constitutional Constitutional ED: Denies chills or fever(s) Eyes Eyes: Denies change in vision ENT ENT ED: Denies sore throat Cardiovascular Cardiovascular: Reports chest pain; Denies palpitations or racing heartbeat Respiratory/Chest Respiratory/Chest: Denies cough or dyspnea Gastrointestinal Gastrointestinal: Reports abdominal pain; Denies diarrhea, nausea or vomiting Genitourinary Genitourinary ED: Denies dysuria or hematuria Musculoskeletal Musculoskeletal: Denies back pain or myalgias Integumentary Denies rash Neurologic Neurologic: Denies headache(s), paresthesias or weakness Hematologic/Lymphatic Hematologic/Lymphatic: Denies easy bleeding or easy bruising EXAM Physical Exam Const Vital Signs: 11/30/23 01:27 11/30/23 01:30 11/30/23 03:22 Temperature 98.1 F 98.1 F Temperature Source Oral Oral Pulse Rate 69 76 64 Respiratory Rate 14 16 16 Blood Pressure 172/84 H 164/94 H 132/95 H Blood Pressure Mean 113 117 107 Pulse Ox 96 97 94 Oxygen Delivery Method Room Air Room Air Room Air 11/30/23 04:26 11/30/23 06:09 Temperature Temperature Source Pulse Rate 64 63 Respiratory Rate 14 18 Blood Pressure 123/83 H 121/83 H Blood Pressure Mean 96 95 Pulse Ox 96 95 Oxygen Delivery Method Room Air Room Air Positive well nourished and well developed General Appearance ED: well developed; Negative for pallor HEENT Reports moist mucous membranes HEENT Narrative: No tongue or lip swelling no oral lesions no airway edema or compromise No signs of infection noted in the posterior pharynx Eyes PERRL and EOMs intact bilaterally General Eye ED: Negative for scleral icterus Neck supple and no JVD Neck Narrative: No nuchal rigidity or meningeal signs noted Chest Wall palpation of chest normal Chest Narrative: No bony deformity or crepitance of the chest wall no reproducible pain with palpation Resp normal respiratory effort and clear to auscultation bilaterally Cardio regular rate and regular rhythm Rate: other Other Details: Heart is regular rate and rhythm without murmurs rubs or gallops Radial and carotid pulses are equal and symmetric GI non-distended GI Narrative: Abdomen is soft and nondistended with normal active bowel sounds. Patient has reproducible pain in the midepigastric and right upper quadrant region. However there is no voluntary guarding or rigidity at either of the sites. Negative Patel sign. No pulsatile mass or fluid wave noted. Auscultation: normoactive bowel sounds Palpation: soft Back/Spine no CVA tenderness Extremity normal to inspection Extremity Narrative: No asymmetric edema no pitting edema negative Homans' sign bilaterally Neuro oriented x3, CN's II-XII intact bilaterally and no sensory deficits noted Sensorium / Orientation: alert Motor Exam: strength 5/5 throughout Psych mental status grossly normal Skin no rashes or lesions noted and no wounds General Skin Exam: Negative for jaundice or pallor MDM MDM MDM Narrative Medical decision making narrative: Patient presented to the ER mildly hypertensive but otherwise with stable vitals. He reported chest pain upon arrival but on exam the pain is in the midepigastric and right upper quadrant region of his abdomen. The patient is low risk for cardiac disease and his presentation is most concerning for biliary colic versus acute cholecystitis versus acute pancreatitis and it is acute coronary syndrome or pneumonia or pneumothorax. However as he did report chest pain as his initial complaint and EKG with troponin was obtained. EKG revealed normal sinus rhythm without ischemic or STEMI changes and troponin was normal at a value of 6 going against acute coronary syndrome. As his exam suggested most likely biliary colic versus pancreatitis liver enzymes and a lipase were obtained liver enzymes were normal and his lipase is only slightly elevated at 76 however based on his sudden onset of pain I did elect to perform a CT of the abdomen and pelvis with IV contrast. This showed multiple gallstones which does correlate with the fact his pain began after eating broccoli cheddar soup and is located more in the right upper quadrant and midepigastric region. However it did suggest potential acute cholecystitis. The patient does not have a fever or white count and therefore I will hold off on antibiotics at this time but based on his symptoms and read he will require a gallbladder ultrasound. Ultrasound is not available at this time in the evening and therefore he will be held in the ER until 7 AM when the ultrasound can be obtained. As the ultrasound is still pending the patient will be signed out to the day physician Dr. Colin. Based on the ultrasound for he may need to discuss the case with general surgery to discuss potential admission and cholecystectomy History & Record Review Discussion w/independent historian: Patient and Significant other Lab Data Attestation: I reviewed the patient's lab results. Labs: Laboratory Results - last 24 hr 11/30/23 01:30 WBC 6.2 RBC 5.23 Hgb 14.5 Hct 43.9 MCV 83.9 MCH 27.7 MCHC 33.0 RDW Std Deviation 42.0 RDW Coeff of Douglas 13.6 Plt Count 182 MPV 8.9 Immature Gran % (Auto) 0.300 Neut % (Auto) 55.9 Lymph % (Auto) 29.9 [place] % (Auto) 10.9 H Eos % (Auto) 2.3 Baso % (Auto) 0.7 Absolute Neuts (auto) 3.4 Absolute Lymphs (auto) 1.84 Nucleated RBC % 0 Sodium 143 Potassium 3.6 Chloride 108 H Carbon Dioxide 30.0 Anion Gap 5 BUN 13 Creatinine 1.26 Estim Creat Clear Calc 56.53 Est GFR (MDRD) Af Amer 72 Est GFR (MDRD) Non-Af 59 L BUN/Creatinine Ratio 10.3 Glucose 102 Calcium 9.1 Total Bilirubin 0.40 Direct Bilirubin 0.08 AST 21 ALT 20 Alkaline Phosphatase 91 Troponin I High Sens 6 Total Protein 6.8 Albumin 3.8 Globulin 3.0 Lipase 76 H Radiography Diagnostic Testing: Clinical Impression(s) from Imaging Studies Abdomen/Pelvis CT 11/30/23 02:11 IMPRESSION: Cholelithiasis with findings that suggest acute cholecystitis. Ultrasound correlation may be helpful for confirmation as clinically indicated. Colonic diverticulosis without evidence of acute diverticulitis. 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 Ascending thoracic aortic aneurysm 4 cm stable. Electronically Signed: Karen Chu MD at 3:52 EST Reading Location ID and State: [facility] / [place] Tel , Service support , Chest X-Ray 11/30/23 02:11 IMPRESSION: No evidence of active intrathoracic disease. Electronically Signed: Karen Chu MD at 3:02 EST Reading Location ID and State: formerly [facility] / [place] Tel , Service support , Chest x-ray as interpreted by the emergency medicine physician reveals no acute infiltrate pneumothorax or pleural effusion Discharge Plan Triage Chief Complaint: Chest Pain ED Provider: Rolan Greene Dx/Rx/DC Orders Clinical Impression: Cholelithiasis, Biliary colic Prescriptions: No Action ferrous sulfate 325 MG tablet 325 mg PO QODAY Rx Instructions: would be due to take on Monday BMX 180 mL suspension 5 ml PO .FOUR TIME DAILY PRN (Reason: allergy symptoms) Qty: 180 cyclobenzaprine 10 mg tablet 10 mg PO QHS fexofenadine 180 mg tablet 180 mg PO Q24H triamcinolone acetonide 0.1 % ointment 1 applic TOPICAL DAILY PRN PRN (Reason: itching) Patient Comments: APPLY TO AFFECTED AREA ONCE A DAY fluticasone propionate [24 Hour Allergy Relief] 50 mcg/actuation spray,suspension 2 spray intranasal DAILY PRN (Reason: allergy symptoms) Rx Instructions: administer into each nostril Zinc-15 66 mg tablet 66 mg PO DAILY omega 5-yyu-adq-fish oil [Fish Oil] 1,200 (144-216) mg capsule 1 cap PO DAILY Primary Care Provider: Abdoul Valdez Referrals: Abdoul Valdez MD [Primary Care Provider] -
[2023-11-30] MEDS: Piperacil/Tazobactam 4.5 GM in 0.9% Normal Saline (100mL MB+) 100 ML IV (09:16)
--- NOTE | 2023-11-30 09:19 | PCM.HP.STD ---
HPI - General General Date of Admission: 11/30/23 Date of Service: 11/30/23 Chief Complaint: Epigastric abdominal pain HPI Narrative AHMET HIDALGO, is a 73 M who presents with a 1 day history of sharp epigastric pain that woke him up at 2300 pm last night. Patient recalls eating broccoli and cheese soup for dinner, ham salad and milk and cookies. Patient notes for the last 1 week he has developed nausea an hour after eating. He denies pain during this period. He notes being treated for musculoskeletal pain for the last several months. Patient notes he was provided Flexeril for this pain which was not helping so he stopped the medication. Patient denies being told previously that he has had gallbladder issues. Patient denies taking any routine medications other than over the counter vitamins and supplements. Patient denies having to see a batch or continuous still operator for any reason. Patient denies previous history of stroke, myocardial infarction, blood clots. He denies any previous complications with anesthesia. Patient notes an abdominal surgical history of laparoscopic bilateral inguinal hernia and umbilical hernia repair with mesh approximately 1 year ago. Patient also notes a TURP several years ago. He is not currently on any medication to assist with urination. He does note difficulty with urination. CT scan of the ab/pel demonstrated: IMPRESSION: Cholelithiasis with findings that suggest acute cholecystitis. Ultrasound correlation may be helpful for confirmation as clinically indicated. Colonic diverticulosis without evidence of acute diverticulitis. 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 Ascending thoracic aortic aneurysm 4 cm stable. RUQ u/s demonstrated: IMPRESSION: Cholelithiasis with findings consistent with acute cholecystitis. Fatty infiltration liver. [facility] Home Medications ferrous sulfate 325 mg (65 mg iron) tablet 325 mg PO QODAY supplement 01/30/21 [History Last Taken Unknown] BMX 180 mL suspension 5 ml PO .FOUR TIME DAILY PRN allergy symptoms #180 mL 11/30/23 [History Last Taken Unknown] cyclobenzaprine 10 mg tablet 10 mg PO QHS 11/30/23 [History Last Taken Unknown] fexofenadine 180 mg tablet 180 mg PO Q24H 11/30/23 [History Last Taken Unknown] fluticasone propionate 50 mcg/actuation nasal spray,suspension (24 Hour Allergy Relief) 2 spray intranasal DAILY PRN allergy symptoms 11/30/23 [History Last Taken Unknown] omega 5-ekv-vht-fish oil 1,200 mg (144 mg-216 mg) capsule (Fish Oil) 1 cap PO DAILY 11/30/23 [History Last Taken Unknown] triamcinolone acetonide 0.1 % topical ointment 1 applic topical DAILY PRN PRN itching 11/30/23 [History Last Taken Unknown] zinc sulfate 66 mg tablet (Zinc-15) 66 mg PO DAILY 11/30/23 [History Last Taken Unknown] Allergy/AdvReac Type Severity Reaction Status Date / Time No Known Allergies Allergy Verified 11/30/23 01:26 Social History Smoking Status: Former smoker ROS Constitutional Constitutional: Reports systems reviewed and no addt'l complaints, except as documented Eyes Eyes: Reports systems reviewed and no addt'l complaints, except as documented ENT HEENT: Reports systems reviewed and no addt'l complaints, except as documented Cardiovascular Cardiovascular: Reports systems reviewed and no addt'l complaints, except as documented Respiratory/Chest Respiratory/Chest: Reports systems reviewed and no addt'l complaints, except as documented Gastrointestinal Gastrointestinal: Reports systems reviewed and no addt'l complaints, except as documented Genitourinary Genitourinary: Reports systems reviewed and no addt'l complaints, except as documented Musculoskeletal Musculoskeletal: Reports systems reviewed and no addt'l complaints, except as documented Integumentary Integumentary: Reports systems reviewed and no addt'l complaints, except as documented Neurologic Neurologic: Reports systems reviewed and no addt'l complaints, except as documented Psychiatric Psychiatric: Reports systems reviewed and no addt'l complaints, except as documented Endocrine Endocrinology: Reports systems reviewed and no addt'l complaints, except as documented Hematologic/Lymphatic Hematologic/Lymphatic: Reports systems reviewed and no addt'l complaints, except as documented Allergic/Immunologic Allergic/Immunologic: Reports systems reviewed and no addt'l complaints, except as documented Vital Signs Vital Signs Vital Signs: 11/30/23 01:27 11/30/23 01:30 11/30/23 03:22 Temperature 98.1 F 98.1 F Temperature Source Oral Oral Pulse Rate 69 76 64 Respiratory Rate 14 16 16 Blood Pressure 172/84 H 164/94 H 132/95 H Blood Pressure Mean 113 117 107 Pulse Ox 96 97 94 Oxygen Delivery Method Room Air Room Air Room Air 11/30/23 04:26 11/30/23 06:09 11/30/23 07:00 Temperature Temperature Source Pulse Rate 64 63 64 Respiratory Rate 14 18 16 Blood Pressure 123/83 H 121/83 H 132/78 H Blood Pressure Mean 96 95 96 Pulse Ox 96 95 98 Oxygen Delivery Method Room Air Room Air Room Air 11/30/23 08:00 Temperature Temperature Source Pulse Rate 60 Respiratory Rate 16 Blood Pressure 129/64 H Blood Pressure Mean 85 Pulse Ox 97 Oxygen Delivery Method Room Air Weight Weight: 194 lb 7.163 oz Body Mass Index (BMI) 28.7 Physical Exam Const alert, oriented x3 and no apparent distress HEENT normocephalic and head/scalp atraumatic Eyes PERRL Neck full ROM Lymph Lymphatic: no lymphadenopathy noted Chest inspection of chest normal Resp normal respiratory effort and clear to auscultation bilaterally Cardio regular rate and regular rhythm GI GI Narrative: Abdomen- soft, tenderness noted in the right upper quadrant and epigastric region with palpation. Positive Patel's sign. Hypoactive bowel sounds. Slightly distended. no CVA tenderness Back/Spine no CVA tenderness Extremity normal to inspection Skin no rashes or lesions noted Neuro no focal motor deficits and no sensory deficits noted Psych mental status grossly normal, thought process normal, cooperative and speech normal Results Lab / Micro Data 11/30/23 01:30 11/30/23 01:30 Labs: Laboratory Results - last 24 hr 11/30/23 01:30: WBC 6.2, RBC 5.23, Hgb 14.5, Hct 43.9, MCV 83.9, MCH 27.7, MCHC 33.0, RDW Std Deviation 42.0, RDW Coeff of Douglas 13.6, Plt Count 182, MPV 8.9, Immature Gran % (Auto) 0.300, Neut % (Auto) 55.9, Lymph % (Auto) 29.9, [place] % (Auto) 10.9 H, Eos % (Auto) 2.3, Baso % (Auto) 0.7, Absolute Neuts (auto) 3.4, Absolute Lymphs (auto) 1.84, Nucleated RBC % 0, Sodium 143, Potassium 3.6, Chloride 108 H, Carbon Dioxide 30.0, Anion Gap 5, BUN 13, Creatinine 1.26, Estim Creat Clear Calc 56.53, Est GFR (MDRD) Af Amer 72, Est GFR (MDRD) Non-Af 59 L, BUN/Creatinine Ratio 10.3, Glucose 102, Calcium 9.1, Total Bilirubin 0.40, Direct Bilirubin 0.08, AST 21, ALT 20, Alkaline Phosphatase 91, Troponin I High Sens 6, Total Protein 6.8, Albumin 3.8, Globulin 3.0, Lipase 76 H Imaging Radiology Impression Abdomen/Pelvis CT 11/30/23 02:11 IMPRESSION: Cholelithiasis with findings that suggest acute cholecystitis. Ultrasound correlation may be helpful for confirmation as clinically indicated. Colonic diverticulosis without evidence of acute diverticulitis. 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 Ascending thoracic aortic aneurysm 4 cm stable. Electronically Signed: Karen Chu MD at 3:52 EST , Chest X-Ray 11/30/23 02:11 IMPRESSION: No evidence of active intrathoracic disease. Electronically Signed: Karen Chu MD at 3:02 EST , Gallbladder Ultrasound 11/30/23 04:18 IMPRESSION: Cholelithiasis with findings consistent with acute cholecystitis. Fatty infiltration liver. Electronically Signed: Karen Chu MD at 7:54 EST , Assessment & Plan Assessment/Plan (1) Cholecystitis, acute with cholelithiasis: PLAN: I am seeing this patient in conjunction with Dr. Gaitan. She will independently evaluate this patient. Patient's RUQ gallbladder u/s demonstrated acute cholecystitis with cholelithiasis which is consistent with patient's symptoms. Dr. Gaitan will plan to perform a laparoscopic cholecystectomy with intraoperative cholangiogram. Procedure details, risks and benefits have explained to the patient. Patient has had the opportunity to ask and have questions answered. Patient verbally understands and agrees with the plan. Plan to admit patient for observation following the procedure. Thank you for allowing us to participate in this patient care. Charges/Coding Visit Charges OBSV E&M: 23860 Observ/hosp same date L2
[2023-11-30] MEDS: Lactated Ringers 1,000 ML 15 ML IV (09:45)
--- NOTE | 2023-11-30 10:40 | GALL_PTH ---
PATHOLOGY RESULTS PATIENT: AHMET HIDALGO LOC: [facility] [place] U#:[id number] AGE/SX: 73/M ROOM: RE11/30/[address]: Dr. Eda Gaitan MD : 1950 BED: DIS: 11/30/2023 SPEC #: [id number] RECD: 11/30/23 13:21 STATUS: FRED REDonavan #: [id number] MADHU: 11/30/23 10:[address]: Eda Gaitan DEPT: SURGICAL PATHOLOGY RECD BY: Anne Reyes ENTERED: 11/30/23 13:45 SP TYPE: ELIZABETH SEAY DR: Dr. Abdoul Valdez MD Tissues: Gallbladder, NOS Procedures: Surgery Specimen Level III HEADER OPERATION: Laparoscopic cholecystectomy with IOC PRE-OP DIAGNOSIS: Cholecystitis, acute with cholelithiasis TISSUE SUBMITTED: Gallbladder MICROSCOPIC DIAGNOSIS Gallbladder, cholecystectomy: Chronic cholecystitis with Rokitansky-Aschoff sinuses. Cholelithiasis. AM:sarika 12/04/2023 MICROSCOPIC DESCRIPTION Slides are reviewed. GROSS DESCRIPTION Received is one container labeled with the patient's name and designated gallbladder. The specimen consists of a gallbladder measuring 10 cm in length and up to 4 cm in diameter. The external surface is pink-pulido, smooth and glistening for the most part. Focally it is granular, hemorrhagic and contains cautery artifact. The gallbladder contains green yellow mucoid bile, sludge material and multiple ovoid to irregular brownish yellow stones and stone fragments measuring in aggregate 4 x 3 x 2 cm and 0.1 - 2 cm in greatest dimension. The mucosa is bile-stained and without any mass lesions. The gallbladder wall measures up to 0.5 cm in greatest dimension. Sections reveal edematous cut surfaces with focal mucoidal subserosal fat. Machine Rope Maker sections from the gallbladder and the cystic duct are submitted in one cassette. / DEMARCO/carrie 11/30/23 TC:3 CPT: 73856
[2023-11-30] MEDS: Bupivacaine Mpf 0.5% 30 ML VIAL (11:55)
--- NOTE | 2023-11-30 12:02 | OP.PCM_ITS ---
Report of Operation Date of Procedure: 11/30/23 Pre-Operative Diagnosis: Acute calculus cholecystitis Post-Operative Diagnosis: Same Surgery/Procedure Performed:: Laparoscopic cholecystectomy Surgeon: Eda Gaitan Type of Anesthesia: General/Supplemental Anesthesiologist: Steve Parmar Special Medications: Zosyn 4.57 g IV x 1 given in ER for acute cholecystitis Specimen's removed: Gallbladder Estimated Blood Loss (mL): 40 cc Description of Procedure: Indications: this is a 73 year-old male who developed abdominal pain/nausea/vomiting and on workup was found to have acute cholecystitis, cholelithiasis, with a normal common bile duct and normal LFTs. Laparoscopic cholecystectomy was elected. Description procedure: The patient was placed on operating table in supine position. A timeout was completed verifying correct patient, procedure, site, position and special equipment prior to beginning procedure. General Anesthesia was induced. The abdomen was prepped and draped in usual sterile fashion. An incision was made in the natural skin line above the umbilicus. The fascia was elevated and incised. The peritoneum was elevated and incised. Entry into the peritoneum was confirmed visually and no bowel was noted in the vicinity of the incision. Rojas trocar was placed. The abdomen was insufflated with carbon dioxide to a pressure of 12-15 mmHg. Patient tolerated insufflation well. The laparoscope was then inserted and abdomen inspected. No injuries from initial trocar placement were noted. Additional trochars were then inserted in the following locations 5 mm trocar in the epigastrium and 2 more 5 mm trochars along the right costal margin. The abdomen was inspected no abnormalities were found. The table is placed in reverse Trendelenburg position with the right side up. The adhesions between the gallbladder and omentum were lysed sharply/removed with traction. The dome of the gallbladder was grasped with atraumatic grasper passed through the lateral port and retracted over the dome of the liver. Infundibulum was then grasped with atraumatic grasper through the midclavicular port and retracted to the right lower quadrant. This maneuver exposed Calot's triangle. The peritoneum overlying the gallbladder infundibulum was then incised and cysti c duct and artery identified and circumferentially dissected. The cystic duct and artery were then doubly clipped and divided close to the gallbladder. The gallbladder then dissected from its peritoneal attachments by electrocautery. Hemostasis was checked and the gallbladder and contained stones were removed using the endoscopic retrieval bag through the umbilical port, which need to be enlarged due to the size of stones. The gallbladder is passed off table as specimen. The gallbladder fossa was irrigated with saline and hemostasis obtained. There is no evidence of bleeding from the gallbladder fossa or cystic artery leakage of bile from the cystic duct stump. Secondary trochars removed under direct vision. No bleeding was noted the trocar sites. The laparoscope was withdrawn and umbilical trocar removed. The abdomen was allowed to collapse. The fascia of the 12 mm trocar was closed with two [id number] 0 Vicryl suture. The skin was closed with sutures of 4-0 Monocryl and Steri-Strips. The patient was extubated. The patient tolerated procedure well and was taken to the postanesthesia care unit in stable condition. Complications none
--- NOTE | 2023-11-30 12:06 | DCINST_ITS ---
Discharge Instructions Diet Discharge Diet: Light diet - advance as tolerated Activity Discharge Activity: May Not Drive (while taking narcotic pain medications.) May shower in (days): 1 Lifting Restrictions: no lifting >20 lbs x 2 wks, no strenuous exercise for 4 wks Dressing / Incision Call your doctor if your incision/area has: Continuous Slow Oozing, Sudden Increased Bleeding, Increased Pain/ Swelling, Increased Redness, Foul Smelling Discharge and Swelling at the incision site Call your doctor if you observe: Fever of 101 or Higher Remove Dressing in: 2 days Cleanse incision/area with: Soap & Water Additional Dressing/Incision Instructions:: Steri-Strips will fall off in 7 to 10 days, if they do not fall off okay to remove after 10 days. Follow Up Care Please Follow Up With: Eda Gaitan MD When: Call the office for a follow-up appointment 2 weeks; after 5 PM and on the weekends call [phone] with any concerns. Test Results: Test results from this visit will be discussed in further detail at your follow- up appointment, if applicable. Discharge Plan Admission Attending Provider: Eda Gaitan Primary Care Provider: Abdoul Valdez Discharge Orders/Prescriptions Prescriptions: New tramadol 50 mg tablet 50 mg PO Q6H PRN (Reason: pain) 3 Days Qty: 14 0RF tamsulosin 0.4 mg capsule 0.4 mg PO DAILY Qty: 20 0RF Continued ferrous sulfate 325 MG tablet 325 mg PO QODAY Rx Instructions: would be due to take on Monday BMX 180 mL suspension 5 ml PO .FOUR TIME DAILY PRN (Reason: allergy symptoms) Qty: 180 cyclobenzaprine 10 mg tablet 10 mg PO QHS fexofenadine 180 mg tablet 180 mg PO Q24H triamcinolone acetonide 0.1 % ointment 1 applic TOPICAL DAILY PRN PRN (Reason: itching) Patient Comments: APPLY TO AFFECTED AREA ONCE A DAY fluticasone propionate [24 Hour Allergy Relief] 50 mcg/actuation spray,suspension 2 spray intranasal DAILY PRN (Reason: allergy symptoms) Rx Instructions: administer into each nostril Zinc-15 66 mg tablet 66 mg PO DAILY omega 0-tmo-mer-fish oil [Fish Oil] 1,200 (144-216) mg capsule 1 cap PO DAILY Referrals / Follow Up: Abdoul Valdez MD [Primary Care Provider] - Disposition Disposition (needs filled in before D/C Order can be placed): Home, Self Care
[2023-11-30] MEDS: Tamsulosin HCl 0.4 MG Capsule 0.400000000000000022 MG PO (13:32)
== END 2023-11-30 15:05 | disposition home or self-care (01) ==
LOC: ED 08:56 → SDC 09:24 → ACINP 09:25 → AC 09:28
PROVIDERS: Emergency Provider Emergency Medicine; PCP Family Medicine; Visit Provider Surgery
PROC: (CPT 47610; principal; 2023-11-30 10:20)
DX: K80.64 Calculus of gallbladder and bile duct with chronic cholecystitis without obstruction (principal); Z87.891 Personal history of nicotine dependence
CPT/HCPCS: 47562; 00790; 71045; 74177; 76705; 80048; 80076; 83690; 84484; 85025; 88304; 93005; 99284; J7030; A4216; J0330; J2405